=== PATIENT | male | born 1965 | race Caucasian/White ===

== ENCOUNTER 2023-03-22 09:27 | Emergency (ER) | payer MEDICARE, MEDICAID, SELFPAY ==
[2023-03-22 09:39] VITALS: BP 178/116; PULSE 91; RESP 16; TEMP 37; O2SAT 95; BMI 44.7
--- NOTE | 2023-03-22 10:01 | XRR_ITS ---
PROCEDURE INFORMATION: Exam: XR Chest Exam date and time: 03/22/2023 10:07 AM Age: 57 years old Clinical indication: Cough; Additional info: Cough, excessive fatigue TECHNIQUE: Imaging protocol: Radiologic exam of the chest. Views: 1 view. COMPARISON: No relevant prior studies available. FINDINGS: Lungs: No significant airspace consolidation concerning for pneumonia. Pleural spaces: No pneumothorax. No pleural effusion. Heart/Mediastinum: Mild enlargement of the cardiac silhouette. Bones/joints: Unremarkable. XR/XR chest 1V [id number] IMPRESSION: No significant airspace consolidation concerning for pneumonia.
--- NOTE | 2023-03-22 10:02 | W.ED.URI ---
HPI - URI/Sore Throat General: Chief Complaint: Headache Stated Complaint: Weakness, trouble hearing, Sleeping alot Time Seen by Provider: 03/22/23 09:51 Source: patient Mode of arrival: ambulatory Limitations: no limitations History of Present Illness: Patient presents emergency department today for evaluation treatment of flulike symptoms. Patient reports that for the last 3 to 4 days he has felt excessively fatigued. He states he is sleeping all the time and he is extremely weak. Has not had any vomiting or diarrhea and states he has been drinking lots of fluids. However, when asked about his blood sugars, states he has not been able to hold the needle because he is so tired. Patient has had cough and nasal congestion. He reports generalized headache. He presents in triage with elevated blood pressure reading but, states he took his lisinopril this morning. He denies any excessive urination. No reported fevers. Review of Systems General: Reports: 10 or more systems reviewed and unremarkable except in HPI and below PFSH ED PFSH: Family History Father Diabetes Mother Stroke Denies family history of CAD (coronary artery disease) Clotting disorder Dementia Hyperlipidemia Psychiatric illness Chronic kidney disease (CKD) Suicide Anesthesia complication Bleeding disorder Family history of premature coronary artery disease Lung disease Cancer Hypertension Social History Smoking and tobacco status: never smoked Second hand smoke exposure: No Smoking risk assessment/counseling performed?: No Alcohol intake: never Desire information about alcohol rehabilitation?: No Counseling given: No Substance/Drug Use: never Desire information about substance/drug rehabilitation?: No Counseling given: No Adopted: No Caregiver/support person: No Lives independently: Yes Marital status: Single service: No Current occupational status: unemployed Do you think of yourself as: Straight/Heterosexual Current gender identity: Male Physical Exam Const: COMMON NORMALS: no acute distress, patient oriented x3 and alert Eye: COMMON NORMALS: Equal, round and reactive pupils present, EOMs intact bilaterally and conjunctivae normal CONJUNCTIVA: Yes conjunctivae normal PUPIL: Yes Equal, round and reactive pupils present Neck/C-Spine: COMMON NORMALS: no JVD Lymph: LYMPHATIC: no lymphadenopathy noted Resp: COMMON NORMALS: normal respiratory effort, No retractions and No use of accessory muscles OTHER: Patient does have a barking cough heard off-and-on in the room. Cardio: COMMON NORMALS: no JVD and regular rate RATE: regular rate : COMMON NORMALS: Yes no CVA tenderness BLADDER/KIDNEY EXAM: Yes no CVA tenderness Back/Pelvis: COMMON NORMALS: no CVA tenderness, thoracic and lumbar spine normal to inspection and thoraco-lumbar ROM normal Extremity: COMMON NORMALS: normal to inspection, full ROM and no pedal edema Neuro: COMMON NORMALS: patient oriented x3 SENSORIUM/ORIENTATION: Yes alert Skin: COMMON NORMALS: no rashes or lesions noted and turgor normal GENERAL SKIN EXAM: no rashes or lesions noted and turgor normal Course Vital Signs: Vital signs: Vital Signs Temperature 98.6 F 03/22/23 09:39 Pulse Rate 91 03/22/23 09:39 Respiratory Rate 16 03/22/23 09:39 Blood Pressure 167/112 03/22/23 12:15 Pulse Oximetry 95 03/22/23 12:15 Oxygen Delivery Me thod Room Air 03/22/23 09:39 MDM - URI/Sore Throat Medical Decision Making Patient presented today complaining of flulike symptoms. He indicated he was concerned for potential sinus infection but also was complaining of fatigue so intense that he could not lift his insulin needle to check his blood sugars. Patient has notably elevated blood pressure readings today though he indicates he has taken his blood pressure medicine. Patient's lab work was generally unremarkable. He had a minimally elevated white blood cell count. No signs of anemia. GFR was within normal limits. Chest x-ray showed no signs of pneumonia but did note a slight enlargement of the cardiac contours but, BNP was within normal limits. Patient's EKG had no acute changes. Troponins were normal. Patient did have 4+ glucose and some ketones in his urine however, patient CO2 was normal and glucose was within normal range. At this time, I did speak with Dr. Rudolph. Explained that we had provided a dose of amlodipine here in the emergency department without much improvement of the blood pressure readings. He recommended a short course of hydrochlorothiazide with follow-up with primary to discuss possible need to adjust blood pressure dosing. Patient is also being treated with doxycycline to cover for sinusitis and give lower respiratory coverage during this time but, patient was given strict return precautions for any change in his condition that should be seen and reevaluated here in the ER. Differential Diagnosis Likely upper respiratory infection, sinusitis, viral infection and bronchitis Lab Data 03/22/23 10:30 03/22/23 10:30 Radiology Impressions Chest X-Ray 03/22/23 10:01 IMPRESSION: No significant airspace consolidation concerning for pneumonia. Laboratory Results WBC 11.5 10^3/uL (4.0-10.0) H 03/22/23 10:30 RBC 5.97 10^6/uL (4.1-5.3) H 03/22/23 10:30 Hgb 15.9 g/dL (11.7-16.6) 03/22/23 10:30 Hct 49.9 % (42.0-52.0) 03/22/23 10:30 MCV 83.6 fl (80-94) 03/22/23 10:30 MCH 26.6 pg (28.0-34.0) L 03/22/23 10:30 MCHC 31.9 g/dL (30.0-36.0) 03/22/23 10:30 RDW 13.5 % (12.1-15.1) 03/22/23 10:30 Plt Count 396 10^3/cmm (130-400) 03/22/23 10:30 MPV 10.1 fL (7.4-10.4) 03/22/23 10:30 Neut % (Auto) 70.5 % 03/22/23 10:30 Lymph % (Auto) 21.3 % 03/22/23 10:30 [place] % (Auto) 6.8 % 03/22/23 10:30 Eos % (Auto) 0.8 % 03/22/23 10:30 Baso % (Auto) 0.3 % 03/22/23 10:30 Neut # (Auto) 8.13 10^3/uL (1.8-7.7) H 03/22/23 10:30 Lymph # (Auto) 2.5 10^3/uL (0.8-4.8) 03/22/23 10:30 [place] # (Auto) 0.8 10^3/uL (0.2-0.9) 03/22/23 10:30 Eos # (Auto) 0.1 10^3/uL (0.0-0.8) 03/22/23 10:30 Baso # (Auto) 0.0 10^3/uL (0.0-0.1) 03/22/23 10:30 Nucleated RBC % (auto) 0 % 03/22/23 10:30 Nucleated RBCs # 0.0 /100WBC 03/22/23 10:30 Sodium 139 mmol/L (136-145) 03/22/23 10:30 Potassium 3.6 mmol/L (3.5-5.1) 03/22/23 10:30 Chloride 100 mmol/L (98-107) 03/22/23 10:30 Carbon Dioxide 24 mmol/L (22-29) 03/22/23 10:30 Anion Gap 18.6 (5-19) 03/22/23 10:30 BUN 12 mg/dL (6-20) 03/22/23 10:30 Creatinine 0.5 mg/dL (0.7-1.2) L 03/22/23 10:30 GFR Calculation 172.0 mL/min (90-130) H 03/22/23 10:30 Glucose 106 mg/dL (65-115) 03/22/23 10:30 Calculated Osmolality 288 mOsm/kg (285-295) 03/22/23 10:30 Calcium 8.8 mg/dL (8.5-10.5) 03/22/23 10:30 Total Bilirubin 0.6 mg/dL (0.15-1.2) 03/22/23 10:30 AST 19 U/L (0-40) 03/22/23 10:30 ALT 13 U/L (0-41) 03/22/23 10:30 Alkaline Phosphatase 127 U/L (40-130) 03/22/23 10:30 Troponin T Baseline 11 ng/L (0-15) 03/22/23 10:30 NT-Pro-B Natriuret Pep 50 pg/mL (0-125) 03/22/23 10:30 Total Protein 7.9 g/dL (6.6-8.7) 03/22/23 10:30 Albumin 4.1 g/dL (3.5-5.2) 03/22/23 10:30 Globulin 3.8 g/dL (1.3-4.6) 03/22/23 10:30 Urine Color Yellow (Yellow) 03/22/23 10:28 Urine Appearance Clear (CLEAR) 03/22/23 10:28 Urine pH 5 (5-7) 03/22/23 10:28 Ur Specific [place] 1.020 (1.005-1.030) 03/22/23 10:28 Urine Protein Neg (Negative) 03/22/23 10:28 Urine Glucose (UA) 4+ (Normal) H 03/22/23 10:28 Urine Ketones 2+ (Negative) H 03/22/23 10:28 Urine Blood Neg (Negative) 03/22/23 10:28 Urine Nitrate Negative (Negative) 03/22/23 10:28 Urine Bilirubin Neg (Negative) 03/22/23 10:28 Urine Urobilinogen 4 mg/dL (Negative) H 03/22/23 10:28 Ur Leukocyte Esterase Negative (Negative) 03/22/23 10:28 Discharge Plan Discharge Patient Disposition: Home Clinical Impression: Sinusitis, Elevated blood pressure reading with diagnosis of hypertension, Fatigue Condition: Stable Prescriptions: New doxycycline hyclate 100 mg tablet 100 mg PO BID 10 Days Qty: 20 0RF hydrochlorothiazide 25 mg tablet 25 mg PO QAM Qty: 3 0RF No Action lisinopril 20 mg tablet 20 mg PO QAM atorvastatin 40 mg tablet 40 mg PO QAM Tresiba FlexTouch U-200 200 unit/mL (3 mL) insulin pen 110 unit SUBCUT BID Farxiga 10 mg tablet 10 mg PO QAM metformin 1,000 mg tablet 1,000 mg PO BID Qty: 180 0RF Aspir-81 81 mg Tablet,Delayed Release (Dr/Ec) 81 mg PO QAM nystatin 100,000 unit/gram cream 1 applic TOPICAL BID Rx Instructions: for 10 days Discharge Orders: Discharge ED (Routine); Ordered 03/22/23 Ordered By: Maya Goldstein Referrals: Homer Cooley DO [Primary Care Provider] - Discharge Diet: Diabetic Discharge Activity: Increase activity as tolerated Patient Instructions: Hydrochlorothiazide (By mouth), Sinusitis - Acute Activity Restrictions/Additional Instructions: Evaluation today did not reveal any acute concerns. Chest x-ray showed no signs of pneumonia. He did have a minimally elevated white blood cell count but no signs of anemia, severe dehydration, significant elevated blood sugars or cardiac concerns to explain your intense fatigue. After speaking to the emergency room physician, we will treat for a sinus infection but, will also address your acutely elevated blood pressure readings with a short course of hydrochlorothiazide. This medication does cause an increase in urination which is normal. During this time, we do recommend you follow-up with your primary care doctor to discuss your elevated blood pressure readings-even while being on your chronic blood pressure medications. You may require an adjusting of your dosing. If for any reason your symptoms acutely worsen or change he should be seen and reevaluated. 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
--- NOTE | 2023-03-22 10:20 | ECG_ITS ---
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 Measurements Intervals [place] Rate: 90 P: 43 ME: 141 QRS: 15 QRSD: 107 T: 5 QT: 364 QTc: 446 Interpretive Statements SINUS RHYTHM INFERIOR MYOCARDIAL INFARCTION , PROBABLY OLD [40+ ms Q WAVE AND/OR ST/T ABNORMALITY IN II/aVF] No previous ECG available for comparison Electronically Signed On 03-22-2023 16:28:50 CDT by Zana King M.D. [email or web address] [email or web address]/store/[id number]
[2023-03-22 10:45] LABS: Basophils % 0.3 %; Eosinophils # 0.1 10^3/uL (0.0-0.8); Eosinophils % 0.8 %; Hematocrit 49.9 % (42.0-52.0); Hemoglobin 15.9 g/dL (11.7-16.6); Lymphocytes # 2.5 10^3/uL (0.8-4.8); Lymphocytes % 21.3 %; Mean Corpuscular HGB Conc 31.9 g/dL (30.0-36.0); Mean Corpuscular Hemoglobin 26.6 pg (28.0-34.0); Mean Corpuscular Volume 83.6 fl (80-94); Mean Platelet Volume 10.1 fL (7.4-10.4); Monocytes # 0.8 10^3/uL (0.2-0.9); Monocytes % 6.8 %; Neutrophils # 8.13 10^3/uL (1.8-7.7); Neutrophils % 70.5 %; Nucleated Red Blood Cells % 0 %; Platelet Count 396 10^3/cmm (130-400); Red Blood Count 5.97 10^6/uL (4.1-5.3); Red Cell Distribution Width 13.5 % (12.1-15.1); White Blood Count 11.5 10^3/uL (4.0-10.0)
[2023-03-22] MEDS: amlodipine 5 mg Tablet PO (10:48)
[2023-03-22 10:58] LABS: Add Urine Microscopic? NO; Charge for UA Resulting for Rev
[2023-03-22 11:01] LABS: Bilirubin Urine Neg (Negative); Blood Urine Neg (Negative); Glucose Urine UA 4+ (Normal); Ketones Urine 2+ (Negative); Leukocyte Esterase Urine Negative (Negative); Nitrate Urine Negative (Negative); Protein Urine Neg (Negative); Urine Appearance Clear (CLEAR); Urine Color Yellow (Yellow); Urobilinogen Urine 4 mg/dL (Negative); pH Urine 5 (5-7)
[2023-03-22 11:10] LABS: Troponin(5th) Baseline 11 ng/L (0-15)
[2023-03-22 11:19] LABS: Alanine Aminotransferase 13 U/L (0-41); Albumin Level 4.1 g/dL (3.5-5.2); Alkaline Phosphatase 127 U/L (40-130); Anion Gap 18.6 (5-19); Aspartate Amino Transferase 19 U/L (0-40); Blood Urea Nitrogen 12 mg/dL (6-20); Calcium 8.8 mg/dL (8.5-10.5); Carbon Dioxide 24 mmol/L (22-29); Chloride 100 mmol/L (98-107); Globulin 3.8 g/dL (1.3-4.6); Glucose 106 mg/dL (65-115); NT Pro B Type Natriuretic Pept 50 pg/mL (0-125); Osmolality Calculated 288 mOsm/kg (285-295); Potassium 3.6 mmol/L (3.5-5.1); Sodium 139 mmol/L (136-145); Total Bilirubin 0.6 mg/dL (0.15-1.2); Total Protein 7.9 g/dL (6.6-8.7)
[2023-03-22 12:08] VITALS: BP 167/112; O2SAT 96
[2023-03-22 12:10] VITALS: BP 167/112; O2SAT 90
[2023-03-22 12:15] VITALS: BP 167/112; O2SAT 95
== END 2023-03-22 12:51 | disposition home or self-care (01) ==
PROVIDERS: Emergency Provider Physician Assistant; PCP Family Medicine
DX: J32.9 Chronic sinusitis, unspecified (principal); R53.83 Other fatigue; R03.0 Elevated blood-pressure reading, without diagnosis of hypertension; Z79.82 Long term (current) use of aspirin; Z79.84 Long term (current) use of oral hypoglycemic drugs; Z79.4 Long term (current) use of insulin
CPT/HCPCS: 36415; 71045; 80053; 81003; 83880; 84484; 85025; 93005; 99285

== ENCOUNTER → 2023-06-28 10:00 | Outpatient (BNVA) | payer MEDICARE, MEDICAID, SELFPAY | PROVIDERS: PCP Family Medicine; Visit Provider Family Medicine | DX: R39.9 Unspecified symptoms and signs involving the genitourinary system (principal); E11.9 Type 2 diabetes mellitus without complications; Z79.4 Long term (current) use of insulin; Z12.5 Encounter for screening for malignant neoplasm of prostate | CPT/HCPCS: 80053; 81000; 83036; G0103 ==

== ENCOUNTER 2023-07-06 10:10 | Inpatient (IN) | payer MEDICARE, MEDICAID, SELFPAY ==
[2023-07-06] VITALS (34 sets, daily range): BP systolic 121–161; BP diastolic 75–114; PULSE 0–136; RESP 19–33; TEMP 36.6–36.7; O2SAT 86–98; BMI 52.3
--- NOTE | 2023-07-06 10:19 | XRR_ITS ---
PROCEDURE INFORMATION: Exam: XR Chest Exam date and time: 07/06/2023 10:47 AM Age: 58 years old Clinical indication: Pain; Angina pectoris; Additional info: Chest pain TECHNIQUE: Imaging protocol: Radiologic exam of the chest. Views: 1 view. Total images: 2 COMPARISON: CR XR chest 1V [id number] 03/22/2023 10:07 AM FINDINGS: Lungs: Unremarkable. No consolidation. Pleural spaces: Unremarkable. No pleural effusion. No pneumothorax. Heart/Mediastinum: Unremarkable. No cardiomegaly. Bones/joints: Unremarkable. XR/XR chest 1V portable [id number] IMPRESSION: No acute findings.
--- NOTE | 2023-07-06 10:21 | ECG_ITS ---
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 Measurements Intervals [place] Rate: 114 P: 57 [place]: 148 QRS: -30 QRSD: 110 T: -62 QT: 352 QTc: 486 Interpretive Statements SINUS TACHYCARDIA BORDERLINE LEFT AXIS DEVIATION [QRS AXIS < -20] LOW QRS VOLTAGE IN PRECORDIAL LEADS [QRS DEFLECTION < 1.0 mV IN CHEST LEADS] INCOMPLETE RIGHT BUNDLE BRANCH BLOCK [90+ ms QRS DURATION, TERMINAL R IN V1/V2, 40+ ms S IN I/aVL/V4/V5/V6] ST DEVIATION AND MODERATE T-WAVE ABNORMALITY, CONSIDER ANTERIOR ISCHEMIA [-0.1+ mV T-WAVE IN V3/V4] INTERPRETATION BASED ON A DEFAULT AGE OF 40 YEARS Compared to ECG 03/22/2023 10:20:56 Low QRS voltage now present Incomplete right bundle-branch block now present Myocardial infarct finding no longer present Electronically Signed On 07-06-2023 12:04:43 CDT by Zana King M.D. [id number]
--- NOTE | 2023-07-06 10:41 | W.ED.CHESTPA ---
HPI - Chest Pain General: Chief Complaint: Chest Pain Stated Complaint: sob chest pain Time Seen by Provider: 07/06/23 10:19 Source: patient Mode of arrival: ambulatory History of Present Illness: 58-year-old male presents emergency room going chest pain and shortness of breath mildly diaphoretic. Sudden onset at home with labored respiration no nausea or vomiting he had another episode last night that was self limiting resolved after just a few minutes. Patient is diabetic he has no known history of coronary artery disease. Does have a history of hypertension. Pain started approximately an hour and a half prior to arrival MD complaint: chest pain Onset (ago): hour(s) Timing of current episode: episodic Prior episodes: Yes Onset: during rest Pain location: left chest Pain radiation: none Severity: moderate Relieving factors: nothing Exacerbating factors: nothing Associated symptoms: Reports dyspnea; Deny abdominal pain, diaphoresis, fever(s), leg edema, nausea, palpitations, sense of impending doom, syncope or vomiting Treatment prior to arrival: none Review of Systems Const: Denies: fever(s), chills or diaphoresis ENMT: Denies: throat pain, ear or mastoid pain, nasal discharge or nasal congestion Card: Reports: chest pain and edema (Chronic); Denies: palpitations, irregular heart rhythm or syncope Resp: Reports: dyspnea GI: Denies: abdominal pain, nausea or vomiting : Denies: flank pain, dysuria, urinary frequency or urinary urgency Skin/Breast: Denies: rash or pruritus PFSH ED PFSH: Family History Father Diabetes Mother Stroke Denies family history of CAD (coronary artery disease) Clotting disorder Dementia Hyperlipidemia Psychiatric illness Chronic kidney disease (CKD) Suicide Anesthesia complication Bleeding disorder Family history of premature coronary artery disease Lung disease Cancer Hypertension Social History Smoking and tobacco status: never smoked Second hand smoke exposure: No Smoking risk assessment/counseling performed?: No Alcohol intake: never Desire information about alcohol rehabilitation?: No Counseling given: No Substance/Drug Use: never Desire information about substance/drug rehabilitation?: No Counseling given: No Adopted: No Caregiver/support person: No Lives independently: Yes Marital status: Single service: No Current occupational status: unemployed Do you think of yourself as: Straight/Heterosexual Current gender identity: Male Physical Exam Const: GENERAL APPEARANCE: cooperative and comfortable ORIENTATION/CONSCIOUSNESS: Yes awake, Yes oriented to person, Yes oriented to place and Yes oriented to time HENMT: COMMON NORMALS: normocephalic, atraumatic and hearing grossly normal bilaterally HEAD & SCALP: normocephalic and atraumatic Resp: COMMON NORMALS: normal respiratory effort, No retractions, No use of accessory muscles and clear to auscultation bilaterally AUSCULTATION: clear to auscultation bilaterally Cardio: COMMON NORMALS: regular rate, regular rhythm and No murmurs present (Cardio) RATE: regular rate RHYTHM: regular rhythm GI: COMMON NORMALS: Soft to palpation and No hepatosplenomegaly present AUSCULTATION: Yes normoactive bowel sounds PALPATION: Yes Soft to palpation, No Tenderness to palpation present (GI), No Guarding due to palpation present (GI) and Yes No hepatosplenomegaly present Extremity: COMMON NORMALS: normal to inspection, capillary refill normal, no clubbing, cyanosis or edema, no calf tenderness and no pedal edema Neuro: SENSORIUM/ORIENTATION: Yes oriented to person, Yes oriented to place and Yes oriented to time Skin: COMMON NORMALS: no rashes or lesions noted GENERAL SKIN EXAM: no rashes or lesions noted Course Vital Signs: Vital signs: Vital Signs Temperature 97.9 F 07/06/23 10:23 Pulse Rate 118 H 07/06/23 10:23 Respiratory Rate 28 H 07/06/23 10:23 Blood Pressure 161/89 07/06/23 10:23 Pulse Oximetry 94 07/06/23 10:23 Oxygen Delivery Me thod Nasal Cannula 07/06/23 10:23 Oxygen Flow Rate 3 07/06/23 10:23 MDM - Chest Pain Medical Decision Making Initial EKG shows ST depression in 2 3 and aVF patient was diaphoretic complaining of chest pain was thought the patient would develop into a STEMI however he had resolution of symptoms and reports his discomfort is only a mild ache he rates it at 1 or 2 out of 10. His first troponin is over 200 repeat EKG showed resolution of the ST depression seen in the inferior leads. Heparin started we will place him on 1/2 inch of Nitropaste he is tachycardic as well we will give him some Lopressor IV and p.o. metoprolol. Admit to hospitalist discussed with phrase orders written consult cardiology Medical Records I reviewed the patient's medical records. Lab Data I reviewed the patient's lab results. 07/06/23 11:10 07/06/23 11:10 Radiology Impressions Chest X-Ray 07/06/23 10:19 IMPRESSION: No acute findings. Laboratory Results WBC 11.36 10^3/uL (3.29-11.43) 07/06/23 11:10 RBC 5.82 10^6/uL (3.85-5.65) H 07/06/23 11:10 Hgb 15.90 g/dL (11.27-16.99) 07/06/23 11:10 Hct 48.9 % (37-53) 07/06/23 11:10 MCV 84.0 fl (82-101) 07/06/23 11:10 MCH 27.3 pg (27-33) 07/06/23 11:10 MCHC 32.5 g/dL (30-55) 07/06/23 11:10 RDW 13.9 % (12.1-15.1) 07/06/23 11:10 Plt Count 247 10^3/cmm (157-399) 07/06/23 11:10 MPV 9.9 fL (7.4-10.4) 07/06/23 11:10 Neut % (Auto) 79.9 % 07/06/23 11:10 Lymph % (Auto) 12.1 % 07/06/23 11:10 [place] % (Auto) 6.9 % 07/06/23 11:10 Eos % (Auto) 0.4 % 07/06/23 11:10 Baso % (Auto) 0.4 % 07/06/23 11:10 Neut # (Auto) 9.09 10^3/uL (1.8-7.7) H 07/06/23 11:10 Lymph # (Auto) 1.4 10^3/uL (0.8-4.8) 07/06/23 11:10 [place] # (Auto) 0.8 10^3/uL (0.2-0.9) 07/06/23 11:10 Eos # (Auto) 0.0 10^3/uL (0.0-0.8) 07/06/23 11:10 Baso # (Auto) 0.0 10^3/uL (0.0-0.1) 07/06/23 11:10 Nucleated RBC % (auto) 0 % 07/06/23 11:10 Nucleated RBCs # 0.0 /100WBC 07/06/23 11:10 Sodium 136 mmol/L (136-145) 07/06/23 11:10 Potassium 3.9 mmol/L (3.5-5.1) 07/06/23 11:10 Chloride 100 mmol/L (98-107) 07/06/23 11:10 Carbon Dioxide 24 mmol/L (22-29) 07/06/23 11:10 Anion Gap 15.9 (5-19) 07/06/23 11:10 BUN 14 mg/dL (6-20) 07/06/23 11:10 Creatinine 0.8 mg/dL (0.7-1.2) 07/06/23 11:10 GFR Calculation 99.6 mL/min (90-130) 07/06/23 11:10 Glucose 220 mg/dL (65-115) H 07/06/23 11:10 Calculated Osmolality 289 mOsm/kg (285-295) 07/06/23 11:10 Calcium 9.0 mg/dL (8.5-10.5) 07/06/23 11:10 Total Bilirubin 0.5 mg/dL (0.15-1.2) 07/06/23 11:10 AST 15 U/L (0-40) 07/06/23 11:10 ALT 15 U/L (0-41) 07/06/23 11:10 Alkaline Phosphatase 119 U/L (40-130) 07/06/23 11:10 Troponin T Baseline 220 ng/L (0-15) H* 07/06/23 11:10 Total Protein 7.4 g/dL (6.6-8.7) 07/06/23 11:10 Albumin 4.1 g/dL (3.5-5.2) 07/06/23 11:10 Globulin 3.3 g/dL (1.3-4.6) 07/06/23 11:10 Discharge Plan Discharge Patient Disposition: Admitted As Inpatient Clinical Impression: Non-ST elevation AL (NSTEMI), Diabetes mellitus, with long-term current use of insulin, Hypertension Condition: Stable Prescriptions: No Action lisinopril 20 mg tablet 20 mg PO QAM atorvastatin 40 mg tablet 40 mg PO QAM tramadol 50 mg tablet 50 mg PO TID PRN (Reason: pain) 30 Days Qty: 60 0RF Farxiga 10 mg tablet 10 mg PO QAM metformin 1,000 mg tablet 1,000 mg PO BID Qty: 180 0RF (DME) Diabetic shoes See Rx Instructions .Route .MEDSUPPLY Qty: 1 0RF Rx Instructions: Please issue diabetic shoes and 2 pair of insoles. 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
[2023-07-06] MEDS: aspirin 81 mg Chew Tablet 243 MG PO (10:51)
[2023-07-06 11:18] LABS: Basophils % 0.4 %; Eosinophils % 0.4 %; Hematocrit 48.9 % (37-53); Lymphocytes # 1.4 10^3/uL (0.8-4.8); Lymphocytes % 12.1 %; Mean Corpuscular HGB Conc 32.5 g/dL (30-55); Mean Corpuscular Hemoglobin 27.3 pg (27-33); Mean Platelet Volume 9.9 fL (7.4-10.4); Monocytes # 0.8 10^3/uL (0.2-0.9); Monocytes % 6.9 %; Neutrophils # 9.09 10^3/uL (1.8-7.7); Neutrophils % 79.9 %; Nucleated Red Blood Cells % 0 %; Platelet Count 247 10^3/cmm (157-399); Red Blood Count 5.82 10^6/uL (3.85-5.65); Red Cell Distribution Width 13.9 % (12.1-15.1); White Blood Count 11.36 10^3/uL (3.29-11.43)
[2023-07-06 11:38] LABS: Alanine Aminotransferase 15 U/L (0-41); Albumin Level 4.1 g/dL (3.5-5.2); Alkaline Phosphatase 119 U/L (40-130); Anion Gap 15.9 (5-19); Aspartate Amino Transferase 15 U/L (0-40); Blood Urea Nitrogen 14 mg/dL (6-20); Carbon Dioxide 24 mmol/L (22-29); Chloride 100 mmol/L (98-107); Globulin 3.3 g/dL (1.3-4.6); Glomerular Filtration Rate 99.6 mL/min (90-130); Glucose 220 mg/dL (65-115); Osmolality Calculated 289 mOsm/kg (285-295); Potassium 3.9 mmol/L (3.5-5.1); Sodium 136 mmol/L (136-145); Total Bilirubin 0.5 mg/dL (0.15-1.2); Total Protein 7.4 g/dL (6.6-8.7)
[2023-07-06 11:43] LABS: Troponin(5th) Baseline 220 ng/L (0-15)
--- NOTE | 2023-07-06 11:46 | ECG_ITS ---
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 Measurements Intervals [place] Rate: 107 P: 38 [place]: 120 QRS: -29 QRSD: 111 T: -31 QT: 365 QTc: 487 Interpretive Statements SINUS TACHYCARDIA BORDERLINE LEFT AXIS DEVIATION [QRS AXIS < -20] LOW QRS VOLTAGE IN PRECORDIAL LEADS [QRS DEFLECTION < 1.0 mV IN CHEST LEADS] PATTERN CONSISTENT WITH PULMONARY DISEASE INCOMPLETE RIGHT BUNDLE BRANCH BLOCK [90+ ms QRS DURATION, TERMINAL R IN V1/V2, 40+ ms S IN I/aVL/V4/V5/V6] MODERATE T-WAVE ABNORMALITY, CONSIDER ANTEROLATERAL ISCHEMIA [-0.1+ mV T-WAVE IN V3-V6] Compared to ECG 07/06/2023 10:21:53 No significant changes Electronically Signed On 07-06-2023 12:05:57 CDT by Zana King M.D. [id number]
[2023-07-06] MEDS: heparin 5,000 unit/mL INJ 1 mL IV ×2 (12:04→20:02)
[2023-07-06] MEDS: heparin drip 25,000 UNIT/500 ML PREMIX 36 UNIT IV (12:08)
[2023-07-06] MEDS: nitroglycerin 1 gm/inch oint Pkt 0.5 INCH TOPICAL ×3 (12:48→23:39)
[2023-07-06] MEDS: metoprolol tartrate 25 mg Tablet PO ×2 (12:48→20:47)
--- NOTE | 2023-07-06 13:01 | P.HP_ITS ---
Providers/Chief Complaint Admitting Physician: Francie Willett MD Primary Care Provider: Homer Cooley DO Chief Complaint: sob chest pain History of Present Illness Nahum Bell is a 58 year old male who presented to the emergency room with a chief complaint of chest pain this morning. When he first got up he felt okay. He took a shower and afterwards he was pulling on some sweatpants when he had sudden onset of chest pain. Onset of pain was when he bent over. Pain was located in the left side of his chest. It is associated with diaphoresis and shortness of breath. He subsequently had an episode in which he passed out, losing consciousness. His father was downstairs and hollered up at him but he did not respond. A few minutes later his father heard moaning. Mr. Bell managed to finish getting dressed and came downstairs telling his father he needed to go to the emergency room. At that time in addition to the pain in his left chest, he was experiencing numbness and tingling in his left arm and left hand. His father drove him in. When he got here he was still having chest pain which she rated as severe. He was also confused at that time in addition to having continued diaphoresis and shortness of breath. He denied any nausea or vomiting. He had no further syncopal episodes but did not feel well. Initial vital signs showed blood pressure 116/114, pulse 108, pulse ox 96%. Initial EKG showed sinus tachycardia 90 beats per minute with some nonspecific inferior changes. Subsequent EKG showed nonspecific anterior lateral changes. Initial troponin was 220. With continued chest pain, he received aspirin, nitroglycerin and metoprolol. Heparin drip was initiated. About 30 minutes after nitroglycerin placement, he was chest pain-free. Case was discussed with cardiology who will see him in consultation. He is being admitted to the hospitalist service. Mr Bell has no personal history of known coronary artery disease. He does have a history of diabetes mellitus type 2, hypertension, hyperlipidemia and sleep apnea. He has been trying to lose weight recently and has been successful with initiation of exercise program and dietary changes, down approximately 30 pounds. Last week he started taking Ozempic. He has noticed that he has been tired and short of breath with exertion over the last month or 2, more so than baseline. He has had some lower extremity edema which he indicates improved after adjusting his diet. He has had no other episodes of chest discomfort. He has a cousin who at the age of 56 from a heart attack. A grandfather had a heart attack. His father has a history of a stroke. No known coronary disease in either of his siblings or his mother. He denies waking up last night with any episodes of discomfort or difficulty breathing. At the present time he remains chest pain-free with treatment initiated, feeling much better than he did earlier today. Review of Systems General: Reports: Other (ROS as per HPI or as otherwise noted here) Const: Reports: change in weight (Weight loss, has been trying), fatigue and other (CPAP machine not working currently); Denies: fever(s) ENMT: Reports: nasal discharge (Feels related to allergies); Denies: throat pain Card: Reports: chest pain, edema, syncope (Today with chest pain episode) and dyspnea on exertion; Denies: palpitations Resp: Denies: productive cough, non-productive cough or pain on inspiration GI: Denies: abdominal pain, nausea, vomiting, change in bowel habits, hematochezia or melena : Reports: urinary frequency; Denies: hematuria Musc: Reports: extremity pain (Recent steroid injections both knees with resolved pain) Neuro: Reports: confusion (Transient this morning) Juan David/Lymph: Denies: easy bruising or easy bleeding Medications/Allergies Home Medications Medication Instructions Recorded Confirmed Last Taken Type atorvastatin 40 mg tablet 40 mg PO QA 07/29/21 07/06/23 07/06/23 History lisinopril 20 mg tablet 20 mg PO [facility] 07/29/21 07/06/23 07/06/23 History dapagliflozin propanediol 10 mg 10 mg PO QAM 01/25/23 07/06/23 07/06/23 History tablet (Farxiga) metformin 1,000 mg tablet 1,000 mg PO BID #180 tabs 03/09/23 07/06/23 07/06/23 Rx aspirin 81 mg tablet,delayed 81 mg PO QAM 03/22/23 07/06/23 07/06/23 History release nystatin 100,000 unit/gram topical 1 applic topical BID 03/22/23 07/06/23 Unknown History cream Diabetic shoes #1 ea 05/17/23 07/06/23 Unknown Rx tramadol 50 mg tablet 50 mg PO TID PRN pain 30 days #60 06/28/23 07/06/23 Unknown Rx tabs cetirizine 10 mg tablet (Zyrtec) 10 mg PO QAM 07/06/23 07/06/23 07/06/23 History insulin degludec 200 unit/mL (3 100 unit SUBCUT BID 07/06/23 07/06/23 07/06/23 History mL) subcutaneous pen (Tresiba FlexTouch U-200 insulin) semaglutide 0.25 mg or 0.5 mg (2 0.5 mg SUBCUT Q7D 07/06/23 07/06/23 07/05/23 History mg/3 mL) subcutaneous pen injector (Ozempic) Allergies Allergy/AdvReac Type Severity Reaction Status Date / Time No Known Allergies Allergy Verified 07/06/23 11:09 PFSH Acute PFSH: Medical History (Updated 07/06/23 @ 14:56 by Francie Willett MD) Diabetes mellitus, with long-term current use of insulin History of sleep study 2012 showing moderate NEHA with nocturnal hypoxemia with CPAP titration recomm ended and subsequently performed though results unknown. Has been using CPAP without oxygen though machine not functioning in summer 2022 Hyperlipidemia Hypertension Obstructive sleep apnea Osteoarthritis Surgical History (Updated 07/06/23 @ 14:46 by Francie Willett MD) No history of previous surgery Family History (Updated 07/06/23 @ 14:52 by Francie Willett MD) Father Diabetes Stroke Mother Stroke Grandfather CAD (coronary artery disease) Family/Other , A cousin age 56 of a heart attack CAD (coronary artery disease) Denies family history of Clotting disorder Dementia Hyperlipidemia Psychiatric illness Chronic kidney disease (CKD) Suicide Anesthesia complication Bleeding disorder Family history of premature coronary artery disease Lung disease Cancer Hypertension Social History (Updated 07/06/23 @ 14:54 by Francie Willett MD) Smoking and tobacco status: never smoked Alcohol intake: never Substance/Drug Use: never Adopted: No Lives independently: Yes Marital status: Single service: No Current occupational status: unemployed Do you think of yourself as: Straight/Heterosexual Current gender identity: Male Additional social history: Rare use of a THC gummy Vitals/I&O/Wt Last Vital Signs Temp 97.9 F 07/06/23 10:23 Pulse 106 H 07/06/23 12:48 Resp 28 H 07/06/23 10:23 BP 145/75 07/06/23 12:48 Pulse Ox 94 07/06/23 10:23 O2 Del Method Nasal Cannula 07/06/23 10:23 O2 Flow Rate 3 07/06/23 10:23 Weight last 48 hrs Weight 175.087 kg Physical Exam Narrative: Patient is awake and alert, able to provide history. Oriented x3. Normocephalic. Extraocular movements are intact. Pupils are equal reactive. Nasopharynx is clear. Oropharynx is clear with moist mucous membranes. Neck is large but supple. Lungs are clear to auscultation bilaterally without any rales rhonchi or wheezes noted. Cardiovascular exam reveals distant heart sounds but regular rhythm. No JVD. 1+ pulses x4. Abdomen is soft, nontender with positive bowel sounds. 2+ pretibial edema. No calf tenderness. Capillary refill brisk at the fingers, slightly prolonged at the toes. Mild stasis changes noted. Clear, face symmetric, moves all extremities. Data 07/06/23 11:10 07/06/23 11:10 Other Labs: Radiology Impressions Chest X-Ray 07/06/23 10:19 IMPRESSION: No acute findings. Laboratory Results WBC 11.36 10^3/uL (3.29-11.43) 07/06/23 11:10 RBC 5.82 10^6/uL (3.85-5.65) H 07/06/23 11:10 Hgb 15.90 g/dL (11.27-16.99) 07/06/23 11:10 Hct 48.9 % (37-53) 07/06/23 11:10 MCV 84.0 fl (82-101) 07/06/23 11:10 MCH 27.3 pg (27-33) 07/06/23 11:10 MCHC 32.5 g/dL (30-55) 07/06/23 11:10 RDW 13.9 % (12.1-15.1) 07/06/23 11:10 Plt Count 247 10^3/cmm (157-399) 07/06/23 11:10 MPV 9.9 fL (7.4-10.4) 07/06/23 11:10 Neut % (Auto) 79.9 % 07/06/23 11:10 Lymph % (Auto) 12.1 % 07/06/23 11:10 Garden % (Auto) 6.9 % 07/06/23 11:10 Eos % (Auto) 0.4 % 07/06/23 11:10 Baso % (Auto) 0.4 % 07/06/23 11:10 Neut # (Auto) 9.09 10^3/uL (1.8-7.7) H 07/06/23 11:10 Lymph # (Auto) 1.4 10^3/uL (0.8-4.8) 07/06/23 11:10 Garden # (Auto) 0.8 10^3/uL (0.2-0.9) 07/06/23 11:10 Eos # (Auto) 0.0 10^3/uL (0.0-0.8) 07/06/23 11:10 Baso # (Auto) 0.0 10^3/uL (0.0-0.1) 07/06/23 11:10 Nucleated RBC % (auto) 0 % 07/06/23 11:10 Nucleated RBCs # 0.0 /100WBC 07/06/23 11:10 Sodium 136 mmol/L (136-145) 07/06/23 11:10 Potassium 3.9 mmol/L (3.5-5.1) 07/06/23 11:10 Chloride 100 mmol/L (98-107) 07/06/23 11:10 Carbon Dioxide 24 mmol/L (22-29) 07/06/23 11:10 Anion Gap 15.9 (5-19) 07/06/23 11:10 BUN 14 mg/dL (6-20) 07/06/23 11:10 Creatinine 0.8 mg/dL (0.7-1.2) 07/06/23 11:10 GFR Calculation 99.6 mL/min (90-130) 07/06/23 11:10 Glucose 220 mg/dL (65-115) H 07/06/23 11:10 Calculated Osmolality 289 mOsm/kg (285-295) 07/06/23 11:10 Calcium 9.0 mg/dL (8.5-10.5) 07/06/23 11:10 Total Bilirubin 0.5 mg/dL (0.15-1.2) 07/06/23 11:10 AST 15 U/L (0-40) 07/06/23 11:10 ALT 15 U/L (0-41) 07/06/23 11:10 Alkaline Phosphatase 119 U/L (40-130) 07/06/23 11:10 Troponin T Baseline 220 ng/L (0-15) H* 07/06/23 11:10 Total Protein 7.4 g/dL (6.6-8.7) 07/06/23 11:10 Albumin 4.1 g/dL (3.5-5.2) 07/06/23 11:10 Globulin 3.3 g/dL (1.3-4.6) 07/06/23 11:10 Laboratory Tests 06/28/23 10:45 Hemoglobin A1c 7.4 H A&P Assessment and plan (1) Non-ST elevation SC (NSTEMI): With unstable angina, in a patient with multiple risk factors for coronary artery disease. Differential also includes other vascular process such as PE, though seems less likely at this point in time. Chronically on aspirin therapy. (2) Diabetes mellitus, with long-term current use of insulin: With hyperglycemia. Chronically on high-dose insulin therapy with 100 units of Tresiba twice a day, Farxiga, metformin and recent addition of semaglutide last week. (3) Hypertension: Primary hypertension, chronically on lisinopril. (4) Hyperlipidemia: Type unknown, chronically on atorvastatin. (5) Osteoarthritis: Primarily involving the knees. Status post steroid injection recently and on tramadol as needed. (6) Obstructive sleep apnea: Chronic diagnosis. Home CPAP currently nonfunctioning. Had nocturnal hypoxemia noted on original sleep study back in 2012. He did have a subsequent titration study though I do not have access to those results. He does not know his chronic settings. (7) BMI 50.0-59.9, adult: Plan Inpatient admission to cardiac stepdown unit Cardiology consultation We will continue heparin drip for therapeutic anticoagulation Continue beta-blockade already initiated Continue Nitropaste for now, if chest pain recurs will initiate nitroglycerin drip Aspirin therapy Echocardiogram ordered Hemoglobin A1c last week was 7.4 Lipid panel ordered for the morning We will check a BNP to have a baseline Telemetry monitoring Continue serial cardiac enzymes and EKGs We will continue half usual long-acting insulin dosage with additional sliding scale insulin as needed Holding home metformin, Farxiga and semaglutide Holding home lisinopril Continue home tramadol for osteoarthritis pain Continue home Zyrtec for allergies CPAP with sleep; primary care provider to address need for replacement CPAP upon follow-up Supportive care otherwise Findings, concerns and plans were discussed with patient in the presence of his father with his permission and both were given an opportunity to ask questions VTE prophylaxis: SCDs, currently on heparin drip GI Prophylaxis: Pepcid twice daily Telemetry: Ordered Henriquez: Not currently indicated Line(s): Peripheral IVs Disposition plan: Anticipate discharge home with outpatient follow-up likely to cardiology in addition to PCP Code Status: Full code Attestations Medical Necessity Statement*: Anticipated stay greater than two midnights in this gentleman with multiple risk factors for coronary artery disease presenting with a non-ST elevation SC for the first time. He is at high risk of rapid clinical decline up to and including the possibility of without close monitoring and appropriate treatment and intervention. Cardiology has been consulted and other plans are as noted above. Diagnoses Non-ST elevation SC (NSTEMI) I21.4 Diabetes mellitus, with long-term current use of insulin E11.9; Z79.4 Hypertension I10 Hyperlipidemia E78.5 Osteoarthritis M19.90 Obstructive sleep apnea G47.33 BMI 50.0-59.9, adult Z68.43
--- NOTE | 2023-07-06 13:53 | USCV_ITS ---
Nahum Bell Age: 58 Gender: M : 1965 Exam Date: 07/06/2023 14:49 Ordering Phys: Francie Willett MD Technologist: Anurag Georges [place] [facility] [place]: [place] BP: 134 / 76 HR: 94 Rhythm: Sinus Technical Quality: Suboptimal MEASUREMENTS (Male / Female) Normal Values 2D ECHO LV Diastolic Diameter PLAX 4.3 cm 4.2 - 5.9 / 3.9 - 5.3 cm LV Systolic Diameter PLAX 2.8 cm IVS Diastolic Thickness 1.4 cm 0.6 - 1.0 / 0.6 - 0.9 cm IVS Systolic Thickness 2.1 cm LVPW Diastolic Thickness 1.0 cm 0.6 - 1.0 / 0.6 - 0.9 cm LVPW Systolic Thickness 1.5 cm LVOT Diameter 2.0 cm LV Ejection Fraction 2D Teich 63.8 % LV Ejection Fraction MOD 2C 55.3 % LV Ejection Fraction 2C AL 55.2 % LA Diameter 4.3 cm M-MODE Aortic Annulus Diameter 3.5 cm LA Ao Ratio MM 1.2 MV E Point Septal Separation 1.1 cm DOPPLER LVOT Peak Velocity 90.0 cm/s MV Area PHT 5.0 cm squared Mitral E to A Ratio 1.2 MV E' Velocity 57.0 cm/s TR Peak Velocity 176.0 cm/s TR Peak Gradient 12.4 mmHg TV Peak E Velocity 80.0 cm/s Right Atrial Pressure 3.0 mmHg Pulmonary Artery Systolic Pressu 15.4 mmHg RV Acceleration Time 0.1 s FINDINGS Left Ventricle The ventricle is not well seen even with echo contrast. There is likely normal LV size and function. Diastolic function cannot be determined. There are no obvious wall motion disturbances. Right Ventricle Normal right ventricular size and systolic function. Normal right ventricular systolic pressure. Right Atrium The right atrium is normal in size. Left Atrium Mildly increased left atrial size. Mitral Valve The mitral valve is not well seen. No obvious stenosis or regurgitation. Aortic Valve Aortic valve not well seen. No obvious stenosis or regurgitation. Tricuspid Valve Tricuspid valve poorly seen. Pulmonic Valve Pulmonic valve not well visualized. Pericardium Normal pericardium without effusion. Aorta Aorta not well visualized. IVC Inferior vena cava not visualized. CONCLUSIONS The ventricle is not well seen even with echo contrast. There is likely normal LV size and function. Diastolic function cannot be determined. There are no obvious wall motion disturbances. Mildly increased left atrial size. There are no prior echocardiogram studies to compare. Dr. King Sanders MD (Electronically Signed) Final Date: 06 July 2023 18:44 S
[2023-07-06 13:55] LABS: Troponin 5 2HR Delta -36.7 ABS# (0-10)
[2023-07-06 13:56] LABS: Troponin 5 2HR 183.3 ng/L (0-15)
--- NOTE | 2023-07-06 14:20 | PC.NURSE ---
Pt IV occluding whenever arm bent. Dr. Willett request another IV ultrasound. Request made for IV placement.
[2023-07-06] MEDS: perflutren protein-a microsphr 0.22 mg/mL SDV 3 mL IV (15:18)
--- NOTE | 2023-07-06 16:19 | ECG_ITS ---
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 Measurements Intervals Sheldon Rate: 101 P: 58 MN: 143 QRS: -28 QRSD: 110 T: -34 QT: 364 QTc: 473 Interpretive Statements SINUS TACHYCARDIA BORDERLINE LEFT AXIS DEVIATION [QRS AXIS < -20] INCOMPLETE RIGHT BUNDLE BRANCH BLOCK [90+ ms QRS DURATION, TERMINAL R IN V1/V2, 40+ ms S IN I/aVL/V4/V5/V6] ST DEVIATION AND MODERATE T-WAVE ABNORMALITY, CONSIDER ANTERIOR ISCHEMIA [-0.1+ mV T-WAVE IN V3/V4] Compared to ECG 07/06/2023 11:46:48 No significant changes Electronically Signed On 07-06-2023 18:40:40 CDT by Zana King M.D. [id number]
--- NOTE | 2023-07-06 16:46 | PM.CONSULT ---
Providers/Reason For Consult Consulting Physician/Specialty*: Cardio vascular medicine Reason for Consult*: Elevated troponin, chest pain Requesting Physician: Hospitalist Attending Physician: Francie Willett MD Primary Care Provider: Homer Cooley DO History of Present Illness History of Present Illness Nahum Bell is a 58 year old male with no known prior history of coronary artery disease. He has a strong positive family history of heart disease as well as obesity, diabetes, dyslipidemia, sleep apnea, hypertension. He has not been a smoker. Today he took a shower and developed chest pain. He was short of breath and diaphoretic. He then had an episode of syncope. He was alone. He does not know how long he was out. He called his father who brought him in here. It was chest pain after the episode of syncope as well. He was hypertensive here in the emergency room with mild tachycardia. His EKG is abnormal compared to his previous tracings now showing diffuse ST segment depression and T wave inversion. He was placed on a heparin drip. His initial troponin is 220 and the second is 183. His chest x-ray is unremarkable. Nitropaste was applied. He has been pain-free since he left the emergency room. He is on low-dose aspirin, statin, beta-miguel and sliding scale insulin. Plavix has not yet been added. Review of Systems Narrative: Negative. Medications/Allergies Home Medications Medication Instructions Recorded Confirmed Last Taken Type atorvastatin 40 mg tablet 40 mg PO QAM 07/29/21 07/06/23 07/06/23 History lisinopril 20 mg tablet 20 mg PO QAM 07/29/21 07/06/23 07/06/23 History dapagliflozin propanediol 10 mg 10 mg PO QAM 01/25/23 07/06/23 07/06/23 History tablet (Farxiga) metformin 1,000 mg tablet 1,000 mg PO BID #180 tabs 03/09/23 07/06/23 07/06/23 Rx aspirin 81 mg tablet,delayed 81 mg PO QAM 03/22/23 07/06/23 07/06/23 History release nystatin 100,000 unit/gram topical 1 applic topical BID 03/22/23 07/06/23 Unknown History cream Diabetic shoes #1 ea 05/17/23 07/06/23 Unknown Rx tramadol 50 mg tablet 50 mg PO TID PRN pain 30 days #60 06/28/23 07/06/23 Unknown Rx tabs cetirizine 10 mg tablet (Zyrtec) 10 mg PO QAM 07/06/23 07/06/23 07/06/23 History insulin degludec 200 unit/mL (3 100 unit SUBCUT BID 07/06/23 07/06/23 07/06/23 History mL) subcutaneous pen (Tresiba FlexTouch U-200 insulin) semaglutide 0.25 mg or 0.5 mg (2 0.5 mg SUBCUT Q7D 07/06/23 07/06/23 07/05/23 History mg/3 mL) subcutaneous pen injector (Ozempic) Allergies Allergy/AdvReac Type Severity Reaction Status Date / Time No Known Allergies Allergy Verified 07/06/23 11:09 Current Medications Generic Name Dose Route Start Last Admin Trade Name Freq PRN Reason Stop Dose Admin Heparin Sodium (Porcine) 0 unit 07/06/23 11:47 07/06/23 12:04 Heparin 5,000 Unit/Ml Inj 1 Ml IV 7,000 unit PRN PRN Administration Heparin weight-base protocol Protocol Heparin Sodium/Sodium Chloride 25,000 unit in 500 mls @ 0 mls/hr 07/06/23 12:00 07/06/23 12:08 Heparin Drip IV 10.28 unit/kg/hr .Q0M KWAN 36 mls/hr Administration Protocol Per Protocol PFSH Acute PFSH: Medical History (Updated 07/06/23 @ 16:51 by King Sanders MD) Diabetes mellitus, with long-term current use of insulin History of sleep study 2012 showing moderate NEHA with nocturnal hypoxemia with CPAP titration recommended and subsequently performed though results unknown. Has been using CPAP without oxygen though machine not functioning in summer 2022 Hyperlipidemia Hypertension Obesity Obstructive sleep apnea Osteoarthritis Surgical History (Updated 07/06/23 @ 14:46 by Francie Willett MD) No history of previous surgery Family History (Updated 07/06/23 @ 14:52 by Francie Willett MD) Father Diabetes Stroke Mother Stroke Grandfather CAD (coronary artery disease) Family/Other , A cousin age 56 of a heart attack CAD (coronary artery disease) Denies family history of Clotting disorder Dementia Hyperlipidemia Psychiatric illness Chronic kidney disease (CKD) Suicide Anesthesia complication Bleeding disorder Family history of premature coronary artery disease Lung disease Cancer Hypertension Social History (Updated 07/06/23 @ 14:54 by Francie Willett MD) Smoking and tobacco status: never smoked Alcohol intake: never Substance/Drug Use: never Adopted: No Lives independently: Yes Marital status: Single service: No Current occupational status: unemployed Do you think of yourself as: Straight/Heterosexual Current gender identity: Male Additional social history: Rare use of a THC gummy Vitals/I&O/Wt Last Vital Signs Temp 97.9 F 07/06/23 10:23 Pulse 121 H 07/06/23 13:20 Resp 31 H 07/06/23 13:20 BP 148/83 07/06/23 13:20 Pulse Ox 89 L 07/06/23 13:15 O2 Del Method Nasal Cannula 07/06/23 13:56 O2 Flow Rate 3 07/06/23 10:23 Weight last 48 hrs Weight 386 lb Physical Exam Narrative: GENERAL: In general he is comfortable now without any discomfort or shortness of breath HEENT: Exam within normal limits. NECK: Supple without jugular vein distention. The carotid upstroke is normal without bruits. BACK: Exam normal. LUNGS: Clear. HEART: Regular rate and rhythm. ABDOMEN: Benign without organomegaly or tenderness. EXTREMITIES: No edema. NEUROLOGIC: Exam normal. SKIN: Unremarkable. Data 07/06/23 11:10 07/06/23 11:10 A&P Assessment and plan (1) Diabetes mellitus, with long-term current use of insulin: (2) Non-ST elevation WI (NSTEMI): (3) Hypertension: (4) Hyperlipidemia: (5) Obstructive sleep apnea: (6) Obesity: Plan He has had a non-ST segment elevation WI. He has new EKG findings. Fortunately the troponin is trending downward and he is now free of pain. We will schedule him for angiography tomorrow morning first thing. Further recommendations will be dependent upon the results of the angiogram. I discussed this with him in detail and provided him verbal informed consent, I discussed the procedure and the possibilities with him. Consult Attestations Medical Necessity Statement: Hospitalization for management of an acute non-ST segment elevation myocardial infarction and Moderate Time for a total of 45 minutes, includes reviewing past or interval history, examining/interviewing patient, placing orders, counseling patient/family/other support, discussing plan of care with staff, communicating with other healthcare providers, documenting encounter and coordinating care Diagnoses Diabetes mellitus, with long-term current use of insulin E11.9; Z79.4 Non-ST elevation WI (NSTEMI) I21.4 Hypertension I10 Hyperlipidemia E78.5 Obstructive sleep apnea G47.33 Obesity E66.9
[2023-07-06 17:09] LABS: Glucose Point of Care 132 mg/dL (70-110)
[2023-07-06] MEDS: famotidine 20 mg Tablet PO (17:25)
[2023-07-06 19:47] LABS: Partial Thromboplastin Time 43.8 SECONDS (23.9-36.7)
[2023-07-06 19:54] LABS: Troponin 5 6HR 131.1 ng/L (0-15)
[2023-07-06 20:42] LABS: Glucose Point of Care 224 mg/dL (70-110)
[2023-07-06] MEDS: insulin glargine 100 units/1 mL 50 UNIT SUBCUT (20:47)
[2023-07-06] MEDS: insulin lispro 100 unit/1 mL SUBCUT (20:47)
[2023-07-07] VITALS (9 sets, daily range): BP systolic 115–128; BP diastolic 83–92; PULSE 95–112; RESP 18–22; TEMP 36.9–37.3; O2SAT 90–98
[2023-07-07 02:40] LABS: Basophils # 0.1 10^3/uL (0.0-0.1); Basophils % 0.4 %; Eosinophils # 0.1 10^3/uL (0.0-0.8); Eosinophils % 0.5 %; Hematocrit 47.4 % (37-53); Lymphocytes # 2.7 10^3/uL (0.8-4.8); Lymphocytes % 20.4 %; Mean Corpuscular HGB Conc 32.3 g/dL (30-55); Mean Corpuscular Hemoglobin 27.4 pg (27-33); Mean Corpuscular Volume 84.9 fl (82-101); Mean Platelet Volume 10.3 fL (7.4-10.4); Monocytes # 1.1 10^3/uL (0.2-0.9); Monocytes % 8.5 %; Neutrophils % 69.8 %; Nucleated Red Blood Cells % 0 %; Platelet Count 276 10^3/cmm (157-399); Red Blood Count 5.58 10^6/uL (3.85-5.65); Red Cell Distribution Width 13.9 % (12.1-15.1); White Blood Count 13.45 10^3/uL (3.29-11.43)
[2023-07-07 02:52] LABS: Partial Thromboplastin Time 30.5 SECONDS (23.9-36.7)
[2023-07-07 03:03] LABS: Anion Gap 14.1 (5-19); Blood Urea Nitrogen 17 mg/dL (6-20); Calcium 9.1 mg/dL (8.5-10.5); Carbon Dioxide 28 mmol/L (22-29); Chloride 103 mmol/L (98-107); Glomerular Filtration Rate 99.6 mL/min (90-130); Glucose 151 mg/dL (65-115); Osmolality Calculated 296 mOsm/kg (285-295); Phosphorus 2.9 mg/dL (2.5-4.5); Potassium 4.1 mmol/L (3.5-5.1); Sodium 141 mmol/L (136-145)
[2023-07-07 03:10] LABS: Chol HDL Ratio 3.49 mg/dL (1.0-5.00); Cholesterol 129 mg/dL (0-200); HDL Cholesterol 37 mg/dL (60-100); LDL Cholesterol Calculated 69 mg/dL (50-129); LDL HDL Ratio 1.86 RATIO (0.00-3.22); NT Pro B Type Natriuretic Pept 2826 pg/mL (0-125); Triglycerides 113 mg/dL (0-150)
[2023-07-07] MEDS: aspirin 81 mg EC Tablet PO (05:06)
[2023-07-07] MEDS: cetirizine 10 mg Tablet PO (05:06)
[2023-07-07] MEDS: nitroglycerin 1 gm/inch oint Pkt 0.5 INCH TOPICAL (05:06)
[2023-07-07] MEDS: sodium chloride 0.9% 1,000 ML 50 ML IV (05:06)
[2023-07-07] MEDS: atorvastatin 40 mg Tablet PO (05:06)
[2023-07-07] MEDS: diphenhydrAMINE 50 mg Capsule PO (05:06)
--- NOTE | 2023-07-07 05:14 | XACV_ITS ---
Exam Room: 2 Ht: 183 cm Wt: 167 kg BSA: 3.00 m2 Gender: Male : 1965 Any Known Allergies: No known allergies Exam Priority: Routine Procedure(s): Procedure Description: Diagnostic procedure Procedure Description: Left Heart Catheterization Procedure Description: Left ventriculography Procedure Description: Coronary Angiography Tommy MANCUSO; Diagnostic Cath Status: Urgent Diagnostic Findings * Shortness of breath diaphoresis chest pain elevated troponin. Angiography performed from the right radial artery. The left main exhibits in 1 view minimal eccentric plaque at the ostium. Otherwise the left main is normal. It trifurcates into the left anterior descending, circumflex and ramus intermedius arteries. The circumflex is relatively small and gives off a very high marginal branch. It is normal. The ramus is normal. The LAD is normal. The right coronary artery is a very large dominant vessel and ends distally as the posterior descending artery and the posterior left ventricular branch. The right coronary artery is normal. Conclusions 1. Minimal nonobstructive coronary artery disease. Recommendations * Risk factor modification. Diagnostic RX Recommendation: medical therapy and/or counseling Anticoagulation: Heparin Ventriculography Ejection Fraction: 65.0 % Pressures Phase:Rest AO : 82 / 73 ( 78 ) @ 7:16:00 AM 83 / 75 ( 79 ) @ 7:17:00 AM 90 / 78 ( 83 ) @ 7:19:00 AM 122 / 85 ( 98 ) @ 7:24:00 AM LV : 319 / 273 / 147 @ 7:21:00 AM 128 / 4 / 17 @ 7:23:00 AM 131 / 10 / 20 @ 7:24:00 AM 128 / 10 / 20 @ 7:24:00 AM Valves Phase:DefaultPhase AV : 0.0 @ 6:32:07 AM AV Mean Gradient: 0.0 @ 6:32:07 AM 0.0 @ 6:32:07 AM Clinical Evaluation EBL: 5mL-10mL Procedural Details Procedure Consent Obtained. Current Diagnosis : NSTEMI. Admit Source: In Patient. Pre-Procedure Time Out. Identified patient by full name and date of as verbalized by the patient/guarantor. Does the consent match the physician's order: Yes. RT Nathan(R) was relieved by Barbara Dawkins as monitoring person. Inpatient/Outpatient History & Physical on Chart: Yes. If H&P is completed, is and addenduem needed: No; If yes, is the addendum complete: N/A. Visualize and Verify Site with Patient/Guarantor: N/A. Relevant Radiology Images available: N/A. The risks, benefits, and alternatives of sedation and/or procedure were discussed by physician. The patient agrees to continue. Procedure started. [facility] Clinical Fraility Score: 4: Vulnerable. Client Technical Support Associate Indications: Suspected CAD. Chest Pain Symptom Assessment: Atypical Angina. Correct patient, site and procedure confirmed by cath team. PERRLA. Strong, equal hand wound care rn bilaterally. Lungs clear x 5 lobes. A 22 gauge IV was started in the right upper arm using aseptic technique. IV Fluids: 0.9% NaCl at KVO. 25 mL infused prior to wood and wood products labourer. Pre Procedural Pulses: bilateral dorsalis pedis was 2+. Pre Procedural Pulses: bilateral posterior tibial was 2+. Pre Procedural Pulses: bilateral radial was 2+. Oxygen started at 2liters/min via nasal canula. right groin was prepped with chloroprep then draped in the usual sterile fashion. right radial was prepped with chloroprep then draped in the usual sterile fashion. Physician notified. Baseline sample Acquired. HR: 104 BPM. Physician arrived. Physician scrubbed in. Immediate Pre-Procedure Time Out. Correct Patient: Yes; Correct Procedure: Yes; Correct Site: Yes; Correct Patient Position: Yes; Correct Supplies: Yes; Dried Flammable Prep: Yes; Blood Products Available: N/A;. Lidocaine 1% infiltrated to the right radial. Arterial access obtained. A 5 armenian TIG catheter in over wire. Multiple views taken of left coronary artery. Catheter redirected to the RCA. Multiple views taken of right coronary artery. Catheter removed over the exchange wire. A 5 armenian Angled Pig catheter in over wire. EDP Sample taken: LV 128/4,17; HR: 78 BPM; SpO2: 93%. LV gram performed in KEY @ 10 mL/second for a total of 30 mL. EDP Sample taken: LV 131/10,20; HR: 83 BPM; SpO2: 94%. Pullback taken: LV 128/10,20; AO 122/85(98); Mean: 0mmHg, Peak to Peak: 0mmHg, SEP: 8sec/min; HR: 95 BPM; SpO2: 94%. Catheter removed over the exchange wire. A TR Band was successful obtaining hemostatsis at the Right Radial artery insertion site. Post Procedure: Pulses reassessed and unchanged. PERRLA. Strong, equal hand wound care rn bilaterally. No VTE prophylaxis required. Medication's Wasted: Lidocaine 1% = 9 mL. Medication's Wasted: Nitro = 49.8 mg. Medication's Wasted: Heparin = 1000 units. Medication's Wasted: Other = versed 1 mg. Medication's Wasted: Other = fentanyl 50 mcg. Total IV fluids: 33 mL. Post-op diagnosis: non obstructive CAD. Complications: none. Estimated blood loss: 5mL-10mL. Responsiveness - Normal response to verbal stimuli; alert and oriented, PERRLA. Airway - Unaffected, no intervention required; spontaneous ventilation. Circulation: W/N/L, pulses unchanged. Nausea/Vomiting: No. Procedure completed. Patient transferred by wheelchair to CPRU. Vital chart was stopped. Access Site Site: Right Radial artery Sheath Size: 6 Fr Hemostasis Method: TR Band Hemostasis Success: Successful Procedure Medications Start: 6:03 AM Stop: 6:03 AM Medication: Versed Amount: 1 mg Route: I.V. Start: 6:03 AM Stop: 6:03 AM Medication: Fentanyl Amount: 50 mcg Route: I.V. Start: 6:12 AM Stop: 6:12 AM Medication: Nitrogylcerin Amount: 200 mcg Route: I.A. I, the attending physician, have reviewed and verified all procedure medications. Yes, all medications given per verbal order History/Risk Factors Hypertension: Yes Dyslipidemia: No Peripheral Arterial Disease (PAD): No Myocardial Infarction (TN): No Obesity: Yes Renal Disease: No Tobacco Use: Never Prior Interventions PCI: No CABG: No Valve Surgery: No Report Signatures Finalized by Dr. King Sanders MD on 07/07/2023 06:45 AM
--- NOTE | 2023-07-07 06:30 | SUR.PHASEII ---
Received the patient back from the cath laboratory technician via wheelchair s/p [facility] [place]. Patient remains in the wheelchair requesting a coke to drink. A & 0 x 3. monitoring tech placed and vital signs obtained. TR band intact to the right wrist. No bleeding or hematoma noted. Palpable radial pulse. No concerns voiced at this time. Will transfer back to room 101 after recovery period.
--- NOTE | 2023-07-07 07:08 | SUR.PHASEII ---
Patient transferred via wheelchair to [facility]. Report was called by Doris Mcbride RN.
[2023-07-07 07:35] LABS: Glucose Point of Care 202 mg/dL (70-110)
[2023-07-07] MEDS: sodium chloride 0.45% 1,000 ML 100 ML IV (07:54)
[2023-07-07] MEDS: metoprolol tartrate 25 mg Tablet PO (08:04)
[2023-07-07] MEDS: famotidine 20 mg Tablet PO (08:04)
[2023-07-07] MEDS: insulin lispro 100 unit/1 mL SUBCUT (08:05)
--- NOTE | 2023-07-07 10:04 | PM.MISC ---
Miscellaneous Note Note: Somewhat to my surprise, his coronary arteries and left ventriculogram were normal. The procedure was done from the right radial artery. There have been no complications. From my standpoint he may be discharged later today as long as there are no radial artery area complications.
--- NOTE | 2023-07-07 11:10 | PC.NURSE ---
MTS notified and released. Holding for [facility] [employer]. Reference #[id number]
--- NOTE | 2023-07-07 11:19 | PM.DDS ---
Discharge Providers DDS Date of Admission: 07/06/23 13:53 Date Summary Completed: 07/07/23 Attending Provider at Admission: Francie Willett MD Time of : 10:42 Attending Provider at Discharge: Maria T Villegas MD Consults: Cardiology Primary Care Provider: Homer Cooley DO DS Diagnoses Hospital Diagnoses (1) Diabetes mellitus, with long-term current use of insulin: (2) Non-ST elevation ME (NSTEMI): (3) Hypertension: (4) Hyperlipidemia: (5) Obstructive sleep apnea: (6) Obesity: Reason for Visit Reason for Visit sob chest pain Summary Date and Time of Date of : 07/07/23 Time of : 10:42 Summary Summary: Patient is a 58-year-old male with diabetes mellitus, hypertension, dyslipidemia sleep apnea and hypertension who was admitted to the hospital on July 06, 2023 after presenting with chest pain shortness of breath and diaphoresis. He also had an episode of syncope at home. His family brought him in eventually. He was complaining of chest pain initially upon admission. He was hypertensive initially with mild tachycardia. His EKG compared to previous tracings showed diffuse ST segment depression and T wave inversions. His troponin was elevated 220--> 183. Nitropaste was applied and his chest pain improved. He was started on treatment for NSTEMI with aspirin statin beta-blockers and heparin drip. He was taken to the [facility] Quality [facility] this morning and angiogram was performed, his coronaries and left ventriculogram were normal. Procedure was completed from the right radial artery. He returned to [facility] and was overall feeling well until around 10:15 this morning when he reached for his call light and as soon as the staff got to him they found him unresponsive on the floor. He was in asystole and had no visible respiration. CPR was performed per ACLS protocol for the next 27 minutes. Chest compressions, intubation, multiple rounds of IV medications were given as per details in the CPR note, however and spite of best resuscitative measures patient was unable to be revived and declared on July 07, 2023 at 10:42 AM. cause of the sudden collapse is not entirely clear. No noted arrhhythmia on telemetry just prior to events, saturating 91% on RA on last vital check, he had not compalined of any dyspnea, chest pain or palpitations prior to the event, angiogram did not reveal any obstructive CAD. Possibility of PE or CVA cannot be excluded. Additional Data Advance directives?: No Discharge Plan Discharge Patient Disposition: Condition: Stable Prescriptions: No Action lisinopril 20 mg tablet 20 mg PO QAM atorvastatin 40 mg tablet 40 mg PO QAM tramadol 50 mg tablet 50 mg PO TID PRN (Reason: pain) 30 Days Qty: 60 0RF Farxiga 10 mg tablet 10 mg PO QAM metformin 1,000 mg tablet 1,000 mg PO BID Qty: 180 0RF (DME) Diabetic shoes See Rx Instructions .Route .MEDSUPPLY Qty: 1 0RF Rx Instructions: Please issue diabetic shoes and 2 pair of insoles. aspirin [Aspir-81] 81 mg Tablet,Delayed Release (Dr/Ec) 81 mg PO QAM nystatin 100,000 unit/gram cream 1 applic TOPICAL BID Zyrtec 10 mg tablet 10 mg PO QAM Tresiba FlexTouch U-200 200 unit/mL (3 mL) insulin pen 100 unit SUBCUT BID Ozempic 0.25 mg or 0.5 mg (2 mg/3 mL) pen injector 0.5 mg SUBCUT Q7D Rx Instructions: on wed Referrals: Homer Cooley DO [Primary Care Provider] - Sis Guillen FNP [Nurse Practitioner] - 07/26/23 10:45 am Patient Instructions: Opioid Safety DS Attestations Time Spent in /Discharge Care*: greater than 30 min Quality - AMI: AMI present?: Yes Quality - Stroke: CVA present?: No Quality - VTE: VTE present?: No Coding Level of Care Code Acute Code for Chg Fwd Diagnoses Diabetes mellitus, with long-term current use of insulin E11.9; Z79.4 Non-ST elevation ME (NSTEMI) I21.4 Hypertension I10 Hyperlipidemia E78.5 Obstructive sleep apnea G47.33 Obesity E66.9
--- NOTE | 2023-07-07 11:55 | PC.NURSE ---
Code Blue; CPR initiated @1015 Pulse Check/CPR/Suction @1017-Asystole Pulse Check/Epi IVP/CPR @1020 Left and Right Lower extremity IO's attempted for IV access @1021 Pulse Check/CPR @1023 Pulse Check/CPR Paused for intubation @1025 Intubated-8.0 ET and 23 @lip @1026 CPR Resumed @1027 Pulse Check/CPR @1029-Asystole Right IO to lower extremity placed successfully @1029 Epi IVP, Calcium IVP, Amp of Bicarb IVP @1029 1L NS Bolus started @1030 Pulse Check, Epi IVP, and CPR resumed @1031-Asystole 2nd Bicarb IVP @1032 Pulse Check, Levo gtt started @20 and CPR resumed @1033-Asystole Epi IVP @1034 Pulse Check/CPR @1035-Asystole 1G Mag @1036 Pulse Check, Epi IVP, CPR @1037 Pulse Check, CPR @1039-Asystole Epi IVP, Bicarb IVP @1040 Pulse Check @1042- Asystole TOD called by Dr Mendoza @1042
--- NOTE | 2023-07-07 12:03 | PM.CCNAC ---
Critical Care Event Note Responded to CODE MIS called overhead at around 10:15 AM. On visiting the room patient on the floor with CPR in process, patient cyanotic. Patient admitted yesterday with concerns for syncope and presyncope with possible cardiovascular etiology underwent cardiac angiogram today and was found to have nonobstructive CAD. During CPR due to patient's body habitus, being on the floor, he had a difficulty in securing the airway and IV access during ACLS protocol CPR. Patient overall received 4-5 rounds of epinephrine, 3 doses of sodium bicarbonate, 2 doses of magnesium and calcium. Patient persistently had rhythm of bradycardia to asystole. Eventually patient could not be resuscitated even after best ACLS protocol resuscitation and was declared at 10:42 AM. Family members were contacted by one of my colleagues. No pulse confirmed with tactile maneuver and Doppler. The high probability of a clinically significant, sudden or life threatening deterioration of the patient's [] system(s) required my full and direct attention, intervention and personal management. The critical care time is as shown. This time is in addition to time spent performing any reported procedures but includes the following: [x] Data and vital sign review and interpretation [x] Patient assessment, examination and intervention [x] Documentation [x] Medication orders and management Critical Care Time Code activated: Yes Critical Care Time (min): 50 Additional information about critical care time: Running NELSON BLUE, assessing rhythm, vasopressors Coding Level of Care Code Critical Care Time Spent (min) 50
--- NOTE | 2023-07-07 17:33 | PM.CCN ---
Critical Care Event Note The high probability of a clinically significant, sudden or life threatening deterioration of the patient's [] system(s) required my full and direct attention, intervention and personal management. The critical care time is as shown. This time is in addition to time spent performing any reported procedures but includes the following: [x] Data and vital sign review and interpretation [x] Patient assessment, examination and intervention [x] Documentation [x] Medication orders and management Critical Care Time Code activated: Yes Critical Care Time (min): 0 Procedures Intubation Sedative: none Laryngoscope: fiber optic video scope Assist device used: fiber optic device ET tube size: 8 ET tube uncuffed: No Tube secured depth (cm): 22 Tube secured location: teeth Tube placement confirmation: visualized tube passing through cords, equal breath sounds bilaterally, no breath sounds over epigastrium and confirmation by capnometry Intubation complications: difficult intubation Additional comments: NELSON ABEBE was called and responded as part of the code team. Dr. Mendoza was present and was managing the code I managed the airway. Patient was in the ground in an awkward position was a very difficult intubation the first attempt there was esophageal intubation. We did not have adequate suction available because of the position of the patient he is very large it is difficult to reposition him to get the needed equipment in the room. We continue to manage the patient with [id number] once we are able to get adequate suction was able to successfully intubate the patient which was confirmed by capnometry and adequate breath sounds. First attempt failed which was recognized immediately upon exam to confirm placement and ET tube was removed and [id number] was continued. Coding Level of Care Code Acute Code for [facility] Fwgustavo
--- NOTE | 2023-07-07 23:00 | PC.NURSE ---
[employer] here for harvesting.
== END 2023-07-07 10:42 | disposition expired ==
LOC: ER 12:38 → CSU 14:15
PROVIDERS: Internal Medicine Cardiovascular Disease; Admitting Provider Hospitalist; Emergency Provider Family Medicine; PCP Family Medicine; Visit Provider Student in an Organized Health Care Education/Training Program
PROC: B2111ZZ Fluoroscopy of Multiple Coronary Arteries using Low Osmolar Contrast (ICD-10-PCS; principal; 2023-07-07 06:00)
DX: I21.4 Non-ST elevation (NSTEMI) myocardial infarction (principal); Z68.43 Body mass index [BMI] 50.0-59.9, adult; E11.9 Type 2 diabetes mellitus without complications; I10 Essential (primary) hypertension; E78.5 Hyperlipidemia, unspecified; G47.33 Obstructive sleep apnea (adult) (pediatric); E66.9 Obesity, unspecified; I46.9 Cardiac arrest, cause unspecified; M17.0 Bilateral primary osteoarthritis of knee; Z99.89 Dependence on other enabling machines and devices; Z91.199 Patient's noncompliance with other medical treatment and regimen due to unspecified reason; Z82.49 Family history of ischemic heart disease and other diseases of the circulatory system
CPT/HCPCS: 31500; 36415; 36416; 71045; 80048; 80053; 80061; 82962; 83735; 83880; 84100; 84484; 85025; 85730; 93005; 93458; 94799; 96365; 96366; 96367; 96372; 99152; 99153; 99285; C1769; C1887; C1894; C8929; J1644; J1815; J2250; J3010; J3490; J7030; Q0163; Q9956; Q9967